=== PATIENT | male | born 1995 | race African-American/Black ===

== ENCOUNTER 2016-09-28 12:23 | Emergency (ER) ==
[2016-09-28 12:31] VITALS: BP 142/65; TEMP 98.6; BMI 18.8
[2016-09-28] MEDS ORDERED: SODIUM CHLORIDE 1,000 ML IV STA (12:40)
[2016-09-28] MEDS ORDERED: ZOFRAN 4 MG/2 ML IVP STA (12:40)
[2016-09-28] MEDS ORDERED: LOMOTIL PO STA (12:41)
[2016-09-28 13:08] LABS: BASOPHILS % (AUTO) 0.2 % (0.0-3.0); EOSINOPHILS % (AUTO) 0.1 % (0.0-7.0); HEMATOCRIT 40.5 % (42.0-52.0); HEMOGLOBIN 14.1 g/dl (14.0-18.0); IMMATURE GRANULOCYTE % (AUTO) 0.3 % (0.0-5.0); LYMPHOCYTES # (AUTO) 0.8 K/uL (0.60-3.4); LYMPHOCYTES % (AUTO) 8.4 (10.0-50.0); MEAN CORPUSCULAR HGB CONC 34.8 (31.8-35.4); MEAN CORPUSCULAR VOLUME 83.3 fl (80.0-94.0); MONOCYTES # (AUTO) 0.5 K/uL (0.4-2.0); NEUTROPHILS # (AUTO) 7.8 K/ul (2.0-6.9); PLATELET COUNT 162 10^3/uL (140-440); RED BLOOD COUNT 4.86 10^6/ul (4.70-6.10); WHITE BLOOD COUNT 9.13 K/ul (4.2-10.2)
[2016-09-28 13:28] LABS: ALBUMIN 4.4 g/dL (3.4-5.0); ALBUMIN/GLOBULIN RATIO 1.52; ANION GAP 17.3; BILIRUBIN,TOTAL 1.12 mg/dL (0.00-1.20); BUN/CREATININE RATIO 9.78; CALCIUM 9.5 mg/dL (8.2-10.2); CREATININE 0.92 mg/dL (0.60-1.10); POTASSIUM 4.3 mmol/L (3.5-5.1); TOTAL PROTEIN 7.3 g/dL (6.4-8.2)
--- NOTE | 2016-09-28 13:35 | CT ---
EXAM: CT Abdomen without contrast. CT Pelvis without contrast. HISTORY: Right-sided abdominal pain, diarrhea, vomiting. COMPARISON: 08/24/2012. TECHNIQUE: Multiple axial images of the abdomen and pelvis were obtained without intravenous contra st. Images were reformatted in the coronal plane. FINDINGS: Please note that evaluation of the abdominal and pelvic structures is limited due to lack of intravenous contrast as well as paucity of intra-abdominal fat. Lung bases are clear. No acute osseous abnormality identified. Liver, gallbladder, pancreas, spleen, adrenal glands, and kidneys demonstrate grossly normal contour . No calcified renal stones or hydronephrosis identified. The bowel is normal in course and caliber without evidence for obstruction or inflammatory process. Clips along the cecum suggest prior appendectomy. No free air identified. No intra-abdominal flui d collections noted. Urinary bladder is unremarkable IMPRESSION: No acute abnormality of the abdomen or pelvis.
--- NOTE | 2016-09-28 14:13 | ED.PDOC ---
General ED Provider: Dr. OSCAR LUNA Chief Complaint: Nausea/Vomiting Stated Complaint: n, v,d Time Seen by Physician: 12:28 Mode of Arrival: Walk-In Information Source: Patient Exam Limitations: No limitations Primary Care Provider: SAFIA OSEI Nursing and Triage Documentation Reviewed and Agree: Yes GI Complaint Exam - Vomiting/Diarrhea Complaint/Exam Symptoms Are: Still present Episodes of Diarrhea Over Last 24 Hours: 0 Initial Severity: Mild Current Severity: Mild Aggravating: Reports: None Alleviating: Reports: None Associated Signs and Symptoms: Denies: Dizziness, Light-headedness, Melena, Hematemesis, Fever, Abdominal pain, Cramping Non-GI Risk Factors: Reports: None Surgical Obstruction Risk Factors: Reports: None Related Surgical History: Reports: None Abdominal Findings: Present: None Review of Systems - Review Of Systems Constitutional: Reports: No symptoms Eyes: Reports: No symptoms Ears, Nose, Mouth, Throat: Reports: No symptoms Respiratory: Reports: No symptoms Cardiac: Reports: No symptoms GI: Reports: Abdominal pain, Nausea, Vomiting : Reports: No symptoms Musculoskeletal: Reports: No symptoms Skin: Reports: No symptoms Neurological: Reports: No symptoms Endocrine: Reports: No symptoms Hematologic/Lymphatic: Reports: No symptoms All Other Systems: Reviewed and Negative Past Medical History - Past Medical History Previously Healthy: Yes Endocrine: Reports: None Cardiovascular: Reports: None Respiratory: Reports: None Hematological: Reports: None Gastrointestinal: Reports: None Genitourinary: Reports: None Neuro/Psych: Reports: None Musculoskeletal: Reports: None Cancer: Reports: None - Surgical History General Surgical History: Reports: Appendectomy - Family History Family History: Reports: Unknown - Social History Smoking Status: Current some day smoker Hx Substance Use: No Alcohol Screening: Occasionally - Immunizations Tetanus Shot up to Date: Yes Physical Exam - Physical Exam Appearance: Well-appearing, No pain distress, Well-nourished Eyes: ZULMA, EOMI, Conjunctiva clear ENT: Ears normal, Nose normal, Oropharynx normal Respiratory: Airway patent, Breath sounds clear, Breath sounds equal, Respirations nonlabored Cardiovascular: RRR, Pulses normal, No rub, No murmur GI/: Soft, Nontender, No masses, Bowel sounds normal, No Organomegaly Musculoskeletal: Normal strength, ROM intact, No edema, No calf tenderness Skin: Warm, Dry, Normal color Neurological: Sensation intact, Motor intact, Reflexes intact, Cranial nerves intact, Alert, Oriented Psychiatric: Affect appropriate, Mood appropriate Interpretation - Radiology Interpretation Radiology Interpretation By: Radiologist Radiology Results: No acute changes Critical Care Note - Critical Care Note Total Time (mins): 0 Course - Course Hematology/Chemistry: 09/28/16 13:00 09/28/16 13:00 Orders, Labs, Meds: Lab Review 09/28/16 13:00 WBC 9.13 RBC 4.86 Hgb 14.1 Hct 40.5 L MCV 83.3 MCH 29.0 MCHC 34.8 RDW Coeff of Ranulfo 12.1 Plt Count 162 Immature Gran % (Auto) 0.3 Neut % (Auto) 86.0 Lymph % (Auto) 8.4 L [place] % (Auto) 5.0 Eos % (Auto) 0.1 Baso % (Auto) 0.2 Immature Gran # (Auto) 0.0 Neut # 7.8 H Lymph # 0.8 [place] # 0.5 Eos # 0.0 Baso # 0.0 Sodium 140 Potassium 4.3 Chloride 100 Carbon Dioxide 27 Anion Gap 17.3 BUN 9 Creatinine 0.92 Estimated GFR (MDRD) 125.00 BUN/Creatinine Ratio 9.78 Glucose 150 H Calcium 9.5 Total Bilirubin 1.12 AST 31 ALT 22 Alkaline Phosphatase 59 Total Protein 7.3 Albumin 4.4 Globulin 2.9 Albumin/Globulin Ratio 1.52 Amylase 54 Lipase 6 L Orders Category Date Time Status ED IV/MEDIPORT/POWERPORT .ONCE EMERGENCY 09/28/16 12:39 Active AMYLASE Stat LAB 09/28/16 13:00 Completed CBC W/ AUTO DIFF Stat LAB 09/28/16 13:00 Completed COMPREHENSIVE METABOLIC PANEL Stat LAB 09/28/16 13:00 Completed LIPASE Stat LAB 09/28/16 13:00 Completed URINALYSIS C & S IF INDICATED Stat LAB 09/28/16 13:55 Received 0.9 % Sodium Chloride [Saline Flush] MEDS 09/28/16 12:40 Active 1 syr IVF PRN PRN Diphenoxylate HCl/Atropine [Lomotil] MEDS 09/28/16 12:41 Discontinued 2 tab PO ONCE STA Ondansetron HCl/Pf [Zofran 4 mg/2 ml] MEDS 09/28/16 12:40 Discontinued 4 mg IVP ONCE STA Sodium Chloride 0.9% [Sodium Chloride] 1,000 ml MEDS 09/28/16 12:[address] ABDOMEN/PELVIS WO CONTRAST Stat RADS 09/28/16 12:39 Completed Medications Generic Name Dose Route Start Last Admin Trade Name Freq PRN Reason Stop Dose Admin Sodium Chloride 1 syr 09/28/16 12:40 09/28/16 13:12 Saline Flush IVF 1 syr PRN PRN Administration To flush IV Discontinued Medications Generic Name Dose Route Start Last Admin Trade Name Freq PRN Reason Stop Dose Admin Diphenoxylate HCl/Atropine 2 tab 09/28/16 12:41 09/28/16 14:09 Lomotil PO 09/28/16 12:42 2 tab ONCE STA Administration Sodium Chloride 1,000 mls @ 1,000 mls/hr 09/28/16 12:40 09/28/16 12:53 Sodium Chloride IV 09/28/16 13:39 1,000 mls/hr BOLUS STA Administration Ondansetron HCl 4 mg 09/28/16 12:40 09/28/16 12:52 Zofran 4 Mg/2 Ml IVP 09/28/16 12:41 4 mg ONCE STA Administration Vital Signs: Temp Pulse Resp BP Pulse Ox 09/28/16 12:25 98.6 F 67 20 142/65 H 99 Departure - Departure Time of Disposition: 14:12 Disposition: HOME SELF-CARE Discharge Problem: Nausea, Vomiting, Gastroenteritis Instructions: Gastroenteritis (ED) Condition: Good Pt referred to PMD for follow-up: Yes Additional Instructions: Please call your Family Physician as soon as possible to schedule a follow-up appointment. Allergies/Adverse Reactions: Allergies No Known Allergies Allergy (Verified 09/28/16 12:37) Home Medications: Ambulatory Orders 1 [No Reported Medications] 0 mg PO DAILY 08/24/12 Disposition Discussed With: Patient
[2016-09-28 14:15] LABS: BILIRUBIN,URINE Negative (NEGATIVE); KETONES,URINE 4+ (NEGATIVE); LEUKOCYTE ESTERASE ,URINE Negative (NEGATIVE); NITRITE,URINE Negative (NEGATIVE); PH,URINE 8.5 (5-9); PROTEIN,URINE Negative (NEGATIVE); URINE, BLOOD Negative (NEGATIVE)
[2016-09-28 14:16] LABS: ADD URINE MICROSCOPIC NO
== END 2016-09-28 14:23 | disposition home or self-care (01) ==
LOC: ED 12:23
DX: K52.9 Noninfective gastroenteritis and colitis, unspecified (principal); F17.210 Nicotine dependence, cigarettes, uncomplicated
CPT/HCPCS: 36415; 80053; 81001; 82150; 83690; 85025; 96361; 96374; 99283

== ENCOUNTER 2017-04-18 15:29 | Emergency (ER) ==
[2017-04-18 15:47] VITALS: TEMP 99.4; BMI 20.2
--- NOTE | 2017-04-18 18:43 | ED.PDOC ---
General ED Provider: Dr. EMILIANO AVALOS Chief Complaint: Nausea/Vomiting Stated Complaint: Stated ate taco yoder last evening, slept well last night. Went to work this am and had Onset this morning after going to work / Multiple episodes of emesis today(8-9) and one episode of diarrhea. Has been sleeping and feels better now. Denies sore throat Time Seen by Physician: 18:20 Mode of Arrival: Walk-In Information Source: Patient Exam Limitations: No limitations Primary Care Provider: SAFIA OSEI Nursing and Triage Documentation Reviewed and Agree: Yes Reviewed sepsis parameters & appropriate labs ordered?: Yes System Inflammatory Response Syndrome: Not Applicable Sepsis Protocol: For patient's 13 years and over: Temp is 96.8 and below OR 101 and greater Pulse >90 BPM Resp >20/minute Acutely Altered Mental Status Are patient's symptoms suggestive of a new infection, such as: -Pneumonia -Skin, Soft Tissue -Endocarditis -UTI -Bone, Joint Infection -Implantable Device -Acute Abdominal Infection -Wound Infection -Meningitis -Blood Stream Catheter Infection -Unknown System Inflammatory Response Syndrome: Not Applicable Review of Systems - Review Of Systems Constitutional: Reports: Weakness, Loss of appetite Eyes: Reports: No symptoms Ears, Nose, Mouth, Throat: Reports: No symptoms Respiratory: Reports: No symptoms Cardiac: Reports: No symptoms GI: Reports: No symptoms, Diarrhea, Vomiting. Denies: Abdomen distended, Abdominal pain : Reports: No symptoms Musculoskeletal: Reports: No symptoms Skin: Reports: No symptoms Neurological: Reports: No symptoms All Other Systems: Reviewed and Negative Past Medical History - Past Medical History Previously Healthy: Yes Endocrine: Reports: None Cardiovascular: Reports: None Respiratory: Reports: None Hematological: Reports: None Gastrointestinal: Reports: None Genitourinary: Reports: None Neuro/Psych: Reports: None Musculoskeletal: Reports: None Cancer: Reports: None - Surgical History General Surgical History: Reports: Appendectomy - Family History Family History: Reports: Unknown - Social History Smoking Status: Current some day smoker Hx Substance Use: No Alcohol Screening: Occasionally Physical Exam - Physical Exam Appearance: Well-appearing Ill-appearing: None Pain Distress: None Eyes: ZULMA, EOMI, Conjunctiva clear ENT: Ears normal, Nose normal, Oropharynx normal Neck: Supple Respiratory: Airway patent, Breath sounds clear, Breath sounds equal Cardiovascular: RRR, Pulses normal, No rub, No murmur GI/: Soft, Nontender, No masses, Bowel sounds normal Musculoskeletal: Normal strength, ROM intact, No edema Skin: Warm, Dry, Normal color Neurological: Sensation intact, Motor intact, Alert, Oriented Psychiatric: Affect appropriate Critical Care Note - Critical Care Note Total Time (mins): 0 Course - Course Hematology/Chemistry: 04/18/17 18:51 04/18/17 18:51 Orders, Labs, Meds: Lab Review 04/18/17 04/18/17 04/18/17 17:18 18:45 18:51 WBC 10.49 H RBC 5.20 Hgb 15.3 Hct 43.8 MCV 84.2 MCH 29.4 MCHC 34.9 RDW Coeff of Ranulfo 11.9 Plt Count 257 Immature Gran % (Auto) 0.3 Neut % (Auto) 89.9 Lymph % (Auto) 6.[address] % (Auto) 3.4 Eos % (Auto) 0.0 Baso % (Auto) 0.2 Immature Gran # (Auto) 0.0 Neut # 9.4 H Lymph # 0.7 [place] # 0.4 Eos # 0.0 Baso # 0.0 Sodium Potassium Chloride Carbon Dioxide Anion Gap BUN Creatinine Estimated GFR (MDRD) BUN/Creatinine Ratio Glucose Calcium Total Bilirubin AST ALT Alkaline Phosphatase Total Protein Albumin Globulin Albumin/Globulin Ratio Urine Color Yellow Urine Clarity Clear Urine pH 8.5 Ur Specific [place] 1.015 Urine Protein Negative Urine Glucose (UA) Trace Urine Ketones 1+ Urine Blood Negative Urine Nitrite Negative Urine Bilirubin Negative Urine Urobilinogen 0.2 Ur Leukocyte Esterase Negative Influenza A (Rapid) Negative by naat Influenza B (Rapid) Negative by naat 04/18/17 18:51 WBC RBC Hgb Hct MCV MCH MCHC RDW Coeff of Ranulfo Plt Count Immature Gran % (Auto) Neut % (Auto) Lymph % (Auto) [place] % (Auto) Eos % (Auto) Baso % (Auto) Immature Gran # (Auto) Neut # Lymph # [place] # Eos # Baso # Sodium 139 Potassium 4.5 Chloride 101 Carbon Dioxide 27 Anion Gap 15.5 BUN 7 Creatinine 0.98 Estimated GFR (MDRD) 115.00 BUN/Creatinine Ratio 7.14 Glucose 126 H Calcium 10.6 H Total Bilirubin 1.2 AST 18 ALT 17 Alkaline Phosphatase 62 Total Protein 8.6 H Albumin 5.0 Globulin 3.6 Albumin/Globulin Ratio 1.39 Urine Color Urine Clarity Urine pH Ur Specific [place] Urine Protein Urine Glucose (UA) Urine Ketones Urine Blood Urine Nitrite Urine Bilirubin Urine Urobilinogen Ur Leukocyte Esterase Influenza A (Rapid) Influenza B (Rapid) Orders Category Date Time Status CBC W/ AUTO DIFF Stat LAB 04/18/17 18:51 Completed CMP [COMPREHENSIVE METABOLIC PANEL] Stat LAB 04/18/17 18:51 Completed FLU A & B MOLECULAR [FLU A/B MOLECULAR] Stat LAB 04/18/17 18:45 Completed UA [URINALYSIS C & S IF INDICATED] Stat LAB 04/18/17 17:18 Completed Vital Signs: Temp Pulse Resp BP Pulse Ox 04/18/17 15:31 99.4 F 89 16 143/100 H 98 Departure - Departure Time of Disposition: 19:45 Disposition: HOME SELF-CARE Discharge Problem: Gastroenteritis Instructions: Gastroenteritis (ED) Condition: Good Pt referred to PMD for follow-up: Yes (PCP) IPMP verified?: No Additional Instructions: Advance diet as tolerated Maintain good oral hydration Have Blood Pressure re evaluated at time of follow up Allergies/Adverse Reactions: Allergies No Known Allergies Allergy (Verified 04/18/17 15:36) Home Medications: Ambulatory Orders 1 [No Reported Medications] 0 mg PO DAILY 08/24/12 Disposition Discussed With: Patient
[2017-04-18 20:03] VITALS: BP 115/81
== END 2017-04-18 20:06 | disposition home or self-care (01) ==
LOC: ED 15:29
DX: K52.9 Noninfective gastroenteritis and colitis, unspecified (principal); F17.210 Nicotine dependence, cigarettes, uncomplicated
CPT/HCPCS: 36415; 80053; 81001; 85025; 87502; 99283

== ENCOUNTER 2017-07-08 05:26 | Emergency (ER) ==
[2017-07-08 05:34] VITALS: BP 152/88; TEMP 97.6; BMI 19.5
[2017-07-08] MEDS ORDERED: ZOFRAN 4 MG/2 ML IVP STA (05:59)
[2017-07-08] MEDS ORDERED: DEMEROL 50 MG/ML VIAL IVP STA (05:59)
--- NOTE | 2017-07-08 06:29 | CT ---
EXAM: CT abdomen and pelvis without intravenous contrast 07/08/2017. Sagittal and coronal reformatt ed images obtained HISTORY: Abdominal pain. Nausea, vomiting and diarrhea. COMPARISON: 09/28/2016 FINDINGS: The liver, gallbladder, adrenal glands, kidneys, spleen and pancreas show no acute process . No bowel obstruction. Postoperative changes within the right lower quadrant. Appendix not identi fied. Unremarkable urinary bladder. No free air or free fluid. IMPRESSION: No acute inflammatory process identified within the limitation of a noncontrast enhanced examination.
--- NOTE | 2017-07-08 06:31 | ED.PDOC ---
General ED Provider: Dr. PRASHANTH CROSS Chief Complaint: Abdominal Pain Stated Complaint: Came for lower abddominal pain, nausea and vomiting,. He ate re heated Wings yesterday night, thinks it might have started it. Time Seen by Physician: 06:29 Mode of Arrival: Walk-In Information Source: Patient Primary Care Provider: SAFIA OSEI Nursing and Triage Documentation Reviewed and Agree: Yes Reviewed sepsis parameters & appropriate labs ordered?: No System Inflammatory Response Syndrome: Not Applicable Sepsis Protocol: For patient's 13 years and over: Temp is 96.8 and below OR 101 and greater Pulse >90 BPM Resp >20/minute Acutely Altered Mental Status Are patient's symptoms suggestive of a new infection, such as: -Pneumonia -Skin, Soft Tissue -Endocarditis -UTI -Bone, Joint Infection -Implantable Device -Acute Abdominal Infection -Wound Infection -Meningitis -Blood Stream Catheter Infection -Unknown GI Complaint Exam - Abdominal Pain Complaint/Exam Onset: Gradual Symptoms Are: Still present Timing: Constant Initial Severity: Severe Current Severity: Severe Location of Pain: Suprapubic Character: Reports: Dull, Aching, Throbbing Aggravating: Reports: Movement Alleviating: Reports: None Associated Signs and Symptoms: Reports: Decreased urine output, Nausea, Vomiting , Diarrhea, Decreased activity AAA Risk Factors: Reports: None Cardiac Risk Factors: Reports: None Testicular Torsion Risk Factors: Reports: None Surgical Obstruction Risk Factors: Reports: None Related Surgical History: Reports: None Abdominal Findings: Absent: Pulsatile mass, Abdominal distention, Unequal femoral pulses Differential Diagnoses: Gastroenteritis Review of Systems - Review Of Systems Constitutional: Reports: No symptoms Eyes: Reports: No symptoms Ears, Nose, Mouth, Throat: Reports: No symptoms Respiratory: Reports: No symptoms Cardiac: Reports: No symptoms GI: Reports: Abdominal pain, Diarrhea, Nausea, Vomiting : Reports: No symptoms Musculoskeletal: Reports: No symptoms Skin: Reports: No symptoms Neurological: Reports: No symptoms Endocrine: Reports: No symptoms Hematologic/Lymphatic: Reports: No symptoms All Other Systems: Reviewed and Negative Past Medical History - Past Medical History Previously Healthy: Yes Endocrine: Reports: None Cardiovascular: Reports: None Respiratory: Reports: None Hematological: Reports: None Gastrointestinal: Reports: None Genitourinary: Reports: None Neuro/Psych: Reports: None Musculoskeletal: Reports: None Cancer: Reports: None - Surgical History General Surgical History: Reports: Appendectomy - Family History Family History: Reports: Unknown - Social History Smoking Status: Current some day smoker Hx Substance Use: No Alcohol Screening: None - Immunizations Tetanus Shot up to Date: Yes Physical Exam - Physical Exam Appearance: Ill-appearing, Thin Eyes: ZULMA, EOMI, Conjunctiva clear ENT: Ears normal, Nose normal, Oropharynx normal Respiratory: Airway patent, Breath sounds clear, Breath sounds equal, Respirations nonlabored Cardiovascular: RRR, Pulses normal, No rub, No murmur GI/: Soft, Tender Musculoskeletal: Normal strength, ROM intact, No edema, No calf tenderness Skin: Warm, Dry, Normal color Neurological: Sensation intact, Motor intact, Reflexes intact, Cranial nerves intact, Alert, Oriented Psychiatric: Affect appropriate, Mood appropriate Critical Care Note - Critical Care Note Total Time (mins): 30 Course - Course Hematology/Chemistry: 07/08/17 05:50 Orders, Labs, Meds: Lab Review 07/08/17 05:50 WBC 14.45 H RBC 5.15 Hgb 14.8 Hct 44.0 MCV 85.4 MCH 28.7 MCHC 33.6 RDW Coeff of Ranulfo 12.0 Plt Count 247 Immature Gran % (Auto) 0.8 Neut % (Auto) 77.1 Lymph % (Auto) 10.6 [place] % (Auto) 10.0 Eos % (Auto) 1.2 Baso % (Auto) 0.3 Immature Gran # (Auto) 0.1 Neut # (Auto) 11.1 H Lymph # (Auto) 1.5 [place] # (Auto) 1.5 Eos # (Auto) 0.2 Baso # (Auto) 0.1 Orders Category Date Time Status ED IV/MEDIPORT/POWERPORT .ONCE EMERGENCY 07/08/17 05:59 Active AMYLASE Stat LAB 07/08/17 05:50 Received CBC W/ AUTO DIFF Stat LAB 07/08/17 05:50 Completed COMPREHENSIVE METABOLIC PANEL Stat LAB 07/08/17 05:50 Received LIPASE Stat LAB 07/08/17 05:50 Received 0.9 % Sodium Chloride [Saline Flush] MEDS 07/08/17 05:59 Ordered 1 syr IVF PRN PRN Meperidine HCl/Pf [Demerol 50 mg/ml Vial] MEDS 07/08/17 05:59 Discontinued 25 mg IVP ONCE STA Ondansetron HCl/Pf [Zofran 4 mg/2 ml] MEDS 07/08/17 05:59 Discontinued 4 [address]P ONCE STA CT ABDOMEN/PELVIS WO CONTRAST Stat RADS 07/08/17 05:59 Taken Medications Generic Name Dose Route Start Last Admin Trade Name Freq PRN Reason Stop Dose Admin Sodium Chloride 1 syr 07/08/17 05:59 Saline Flush IVF PRN PRN To flush IV Discontinued Medications Generic Name Dose Route Start Last Admin Trade Name Freq PRN Reason Stop Dose Admin Meperidine HCl 25 mg 07/08/17 05:59 07/08/17 06:13 Demerol 50 Mg/Ml Vial IVP 07/08/17 06:00 25 mg ONCE STA Administration Ondansetron HCl 4 mg 07/08/17 05:59 07/08/17 06:11 Zofran 4 Mg/2 Ml IVP 07/08/17 06:00 4 mg ONCE STA Administration Vital Signs: Temp Pulse Resp BP Pulse Ox 07/08/17 05:27 97.6 F 68 16 152/88 H 97 Departure - Departure Time of Disposition: 06:35 Disposition: HOME SELF-CARE Discharge Problem: Gastroenteritis Instructions: Gastroenteritis (ED) Condition: Stable Pt referred to PMD for follow-up: Yes IPMP verified?: No Additional Instructions: Increase Hydration Soft diet for 2-3 days If not better needs to have f/u Prescriptions: Ondansetron [Zofran Odt] 4 mg PO Q8H #20 tab.rapdis Allergies/Adverse Reactions: Allergies No Known Allergies Allergy (Verified 07/08/17 05:54) Home Medications: Ambulatory Orders 1 [No Reported Medications] 0 mg PO DAILY 08/24/12 Ondansetron [Zofran Odt] 4 mg PO Q8H #20 tab.rapdis 07/08/17 Disposition Discussed With: Patient
[2017-07-08] MEDS ORDERED: PROTONIX IV IVP STA (06:32)
[2017-07-08] MEDS ORDERED: SODIUM CHLORIDE 500 ML IV STA (06:35)
[2017-07-08] MEDS ORDERED: SODIUM CHLORIDE 1,000 ML IV STA (08:18)
[2017-07-08] MEDS ORDERED: PHENERGAN 25 MG/ML VIAL 25 MG in SODIUM CHLORIDE 50 ML IV STA (08:18)
[2017-07-08] MEDS ORDERED: PHENERGAN 25 MG/ML VIAL ONE (08:22)
== END 2017-07-08 09:53 | disposition home or self-care (01) ==
LOC: ED 05:26
DX: K52.9 Noninfective gastroenteritis and colitis, unspecified (principal); F17.210 Nicotine dependence, cigarettes, uncomplicated
CPT/HCPCS: 36415; 80053; 82150; 83690; 85025; 96361; 96365; 96375; 99283

== ENCOUNTER 2017-08-22 13:07 | Emergency (ER) ==
[2017-08-22 13:12] VITALS: BP 157/93; TEMP 96.4; BMI 18.8
[2017-08-22] MEDS ORDERED: SODIUM CHLORIDE 1,000 ML IV STA ×4 (13:31→17:20)
[2017-08-22] MEDS ORDERED: ZOFRAN 4 MG/2 ML IVP STA (13:31)
[2017-08-22] MEDS ORDERED: PEPCID IVP STA (13:33)
--- NOTE | 2017-08-22 15:16 | ED.PDOC ---
General ED Provider: Dr. EMILIANO AVALOS Chief Complaint: Nausea/Vomiting Stated Complaint: Severe nausea and vomiting. Recurrent symptoms that seem to occur monthly. Denies know precipitating factors. No prior GI work up Time Seen by Physician: 13:20 Mode of Arrival: Walk-In Information Source: Patient Exam Limitations: No limitations Primary Care Provider: SAFIA OSEI Nursing and Triage Documentation Reviewed and Agree: Yes Does patient meet sepsis criteria?: No System Inflammatory Response Syndrome: Not Applicable Sepsis Protocol: For patient's 13 years and over: Temp is 96.8 and below OR 101 and greater Pulse >90 BPM Resp >20/minute Acutely Altered Mental Status Are patient's symptoms suggestive of a new infection, such as: -Pneumonia -Skin, Soft Tissue -Endocarditis -UTI -Bone, Joint Infection -Implantable Device -Acute Abdominal Infection -Wound Infection -Meningitis -Blood Stream Catheter Infection -Unknown GI Complaint Exam - Abdominal Pain Complaint/Exam Onset: Sudden Symptoms Are: Still present Timing: Constant Initial Severity: Severe Current Severity: Moderate Location of Pain: LUQ, LLQ, Epigastric Radiates To: Reports: Back, LLQ Character: Reports: Sharp, Burning, Cramping, Colicky Aggravating: Reports: None Alleviating: Reports: None Associated Signs and Symptoms: Reports: Decreased appetite, Vomiting Related History: Reports: Similar episode AAA Risk Factors: Reports: None Cardiac Risk Factors: Reports: None Testicular Torsion Risk Factors: Reports: None Surgical Obstruction Risk Factors: Reports: None Related Surgical History: Reports: None Abdominal Findings: Present: Abdominal distention Differential Diagnoses: Diverticulitis, Gastroenteritis, Irritable Bowel Syndrome - Vomiting/Diarrhea Complaint/Exam Symptoms Are: Still present Episodes of Vomiting over last 24 Hours: 6 Initial Severity: Severe Current Severity: Moderate Character of Vomiting: Reports: Bilious, Retching Alleviating: Reports: Lying still, Medications Associated Signs and Symptoms: Reports: Dizziness, Abdominal pain, Cramping Related History: Reports: Similar episode Surgical Obstruction Risk Factors: Reports: None Related Surgical History: Reports: None Abdominal Findings: Present: Abdominal distention Kussmaul Respirations Present: No Differential Diagnoses: Dehydration, Gastritis, Viral Gastroenteritis, Bacterial Gastroenteritis Review of Systems - Review Of Systems Constitutional: Reports: No symptoms, Chills Eyes: Reports: No symptoms Ears, Nose, Mouth, Throat: Reports: No symptoms Respiratory: Reports: No symptoms Cardiac: Reports: No symptoms GI: Reports: No symptoms, Abdomen distended, Nausea, Poor appetite, Vomiting : Reports: No symptoms Musculoskeletal: Reports: No symptoms Skin: Reports: No symptoms Neurological: Reports: No symptoms Endocrine: Reports: No symptoms Hematologic/Lymphatic: Reports: No symptoms All Other Systems: Reviewed and Negative Past Medical History - Past Medical History Previously Healthy: Yes Endocrine: Reports: None, Other (Hyperglycemia) Cardiovascular: Reports: None Respiratory: Reports: None Hematological: Reports: None, Sickle Cell (Trait), Other (Sickle Cell Trait) Gastrointestinal: Reports: None, Other (Gastroenteritis) Genitourinary: Reports: None Neuro/Psych: Reports: None Musculoskeletal: Reports: None Cancer: Reports: None - Surgical History General Surgical History: Reports: Appendectomy - Family History Family History: Reports: Unknown - Social History Smoking Status: Current some day smoker, Light tobacco smoker Hx Substance Use: No Alcohol Screening: None Physical Exam - Physical Exam Appearance: Ill-appearing, Well-nourished, Thin Ill-appearing: Moderate Pain Distress: Moderate Eyes: ZULMA, EOMI, Conjunctiva clear ENT: Ears normal, Nose normal, Oropharynx normal Respiratory: Airway patent, Breath sounds clear, Breath sounds equal, Respirations nonlabored Cardiovascular: RRR, Pulses normal, No rub, No murmur GI/: Soft, No masses, No Organomegaly, Tender, Bowel sounds hypoactive Musculoskeletal: Normal strength, ROM intact, No edema, No calf tenderness Skin: Warm, Dry, Normal color Neurological: Sensation intact, Motor intact, Reflexes intact, Cranial nerves intact, Alert, Oriented Psychiatric: Affect appropriate, Mood appropriate Critical Care Note - Critical Care Note Total Time (mins): 60 Course - Course Hematology/Chemistry: 08/22/17 13:45 08/22/17 13:45 Orders, Labs, Meds: Lab Review 08/22/17 08/22/17 13:45 13:45 WBC 15.92 H RBC 5.30 Hgb 15.0 Hct 44.5 MCV 84.0 MCH 28.3 MCHC 33.7 RDW Coeff of Ranulfo 13.0 Plt Count 226 Immature Gran % (Auto) 0.4 Neut % (Auto) 85.5 Lymph % (Auto) 8.7 L [place] % (Auto) 4.8 Eos % (Auto) 0.3 Baso % (Auto) 0.3 Immature Gran # (Auto) 0.1 Neut # (Auto) 13.6 H Lymph # (Auto) 1.4 [place] # (Auto) 0.8 Eos # (Auto) 0.1 Baso # (Auto) 0.1 Sodium 136 Potassium 4.7 Chloride 103 Carbon Dioxide 26 Anion Gap 11.7 BUN 9 Creatinine 0.97 Estimated GFR (MDRD) 116.00 BUN/Creatinine Ratio 9.27 Glucose 142 H Calcium 9.5 Total Bilirubin 1.0 AST 24 ALT 15 Alkaline Phosphatase 63 Total Protein 8.4 H Albumin 4.5 Globulin 3.9 Albumin/Globulin Ratio 1.15 Lipase 7 L Orders Category Date Time Status NPO REMINDER: IMAGING ONCE CARE 08/22/17 13:36 Completed IV [ED IV/MEDIPORT/POWERPORT] .ONCE EMERGENCY 08/22/17 13:30 Active CBC W/ AUTO DIFF Stat LAB 08/22/17 13:45 Completed CMP [COMPREHENSIVE METABOLIC PANEL] Stat LAB 08/22/17 13:45 Completed LIPASE Stat LAB 08/22/17 13:45 Completed UA [URINALYSIS C & S IF INDICATED] Stat LAB 08/22/17 13:36 Uncollected URINE DRUG SCREEN (RAPID FOR ED) [DRUG SCREEN, URINE, LAB 08/22/17 13:36 Uncollected RAPID] Stat 0.9 % Sodium Chloride [Saline Flush] MEDS 08/22/17 13:30 Active 1 syr IVF PRN PRN Famotidine Inj [Pepcid] MEDS 08/22/17 13:33 Discontinued 20 mg IVP ONCE STA Ondansetron HCl/Pf [Zofran 4 mg/2 ml] MEDS 08/22/17 13:31 Discontinued 4 mg IVP ONCE STA Sodium Chloride 0.9% [Sodium Chloride] 1,000 ml MEDS 08/22/17 13:49 Discontinued IV BOLUS Medications Generic Name Dose Route Start Last Admin Trade Name Freq PRN Reason Stop Dose Admin Sodium Chloride 1 syr 08/22/17 13:30 08/22/17 13:50 Saline Flush IVF 1 syr PRN PRN Administration To flush IV Discontinued Medications Generic Name Dose Route Start Last Admin Trade Name Freq PRN Reason Stop Dose Admin Famotidine 20 mg 08/22/17 13:33 08/22/17 13:46 Pepcid IVP 08/22/17 13:34 20 mg ONCE STA Administration Sodium Chloride 1,000 mls @ 1,000 mls/hr 08/22/17 13:49 08/22/17 13:50 Sodium Chloride IV 08/22/17 14:48 1,000 mls/hr BOLUS STA Administration Ondansetron HCl 4 mg 08/22/17 13:31 08/22/17 13:46 Zofran 4 Mg/2 Ml IVP 08/22/17 13:32 4 mg ONCE STA Administration Vital Signs: Temp Pulse Resp BP Pulse Ox 08/22/17 13:07 96.4 F L 57 L 20 157/93 H 99 Departure - Departure Time of Disposition: 18:50 Disposition: HOME SELF-CARE Discharge Problem: Gastritis, Vomiting, Dehydration, Sickle-cell trait Condition: Good Pt referred to PMD for follow-up: Yes IPMP verified?: No Additional Instructions: Remain well hydrated Avoid fast food items Follow up pcp 1 week Allergies/Adverse Reactions: Allergies No Known Allergies Allergy (Verified 08/22/17 13:14) Home Medications: Ambulatory Orders 1 [No Reported Medications] 0 mg PO DAILY 08/24/12 Disposition Discussed With: Patient, Family Additional Comments Additional Comments: After receiving 1 liter of IV NS, patient feeling slighlty better but still having upper abdominal Crramping pain and Nausea. HX Sickle Cell Trait. Requesting additional IV fluids. 1830 hrs: 2nd liter of fluid infused. Patient much improved requesting discharge to home
[2017-08-22] MEDS ORDERED: PHENERGAN 25 MG/ML VIAL IM STA (15:22)
--- NOTE | 2017-08-22 16:25 | CT ---
EXAM: CT abdomen pelvis with and without contra HISTORY: Abdominal pain with nausea/vomiting COMPARISON: 07/08/2017 TECHNIQUE: CT abdomen pelvis performed with and without intravenous contrast. Coronal and sagittal reformatted images obtained. FINDINGS: Lung bases clear. No acute abnormalities of the bones. Heart normal in size. Small foca l fatty infiltration near the falciform ligament. Liver otherwise unremarkable. Gallbladder unremar kable. Pancreas unremarkable. Spleen unremarkable. Adrenals unremarkable. Sub centimeter hypodens ities right kidney, too small to characterize. No hydronephrosis or nephrolithiasis. Aorta normal i n caliber. Bladder unremarkable. Prostate normal in size. No lymphadenopathy or ascites identified . Stomach appears normal. No dilated loops small bowel. Clips along the cecum suggest prior append ectomy. Colon decompressed and poorly evaluated. No inflammatory stranding identified in the abdomen or pelvis. IMPRESSION: No acute abnormality identified in the abdomen pelvis.
[2017-08-22] MEDS ORDERED: PROTONIX IV IVP STA (16:33)
== END 2017-08-22 19:10 | disposition home or self-care (01) ==
LOC: ED 13:07
DX: K29.70 Gastritis, unspecified, without bleeding (principal); R11.10 Vomiting, unspecified; E86.0 Dehydration; D57.3 Sickle-cell trait
CPT/HCPCS: 36415; 80053; 80306; 81001; 83036; 83690; 85025; 96361; 96365; 96372; 96374; 96375; 99283

== ENCOUNTER 2017-10-27 11:41 | Emergency (ER) ==
[2017-10-27 11:51] VITALS: BP 127/82; TEMP 98.6; BMI 18.6
--- NOTE | 2017-10-27 12:19 | DI ---
Exam: Right hand three-view History: Injury and pain Findings / impression: The specific site of injury has not been designated. No bony or articular ab normality of the right hand. Negative exam.
--- NOTE | 2017-10-27 12:29 | ED.PDOC ---
General ED Provider: Dr. OSCAR LUNA Chief Complaint: Hand Pain/Injury Stated Complaint: HAND PAIN RIGHT SIDED Time Seen by Physician: 11:43 Mode of Arrival: Walk-In Information Source: Patient Exam Limitations: No limitations Primary Care Provider: SAFIA OSEI Nursing and Triage Documentation Reviewed and Agree: Yes Does patient meet sepsis criteria?: No System Inflammatory Response Syndrome: Not Applicable Sepsis Protocol: For patient's 13 years and over: Temp is 96.8 and below OR 101 and greater Pulse >90 BPM Resp >20/minute Acutely Altered Mental Status Are patient's symptoms suggestive of a new infection, such as: -Pneumonia -Skin, Soft Tissue -Endocarditis -UTI -Bone, Joint Infection -Implantable Device -Acute Abdominal Infection -Wound Infection -Meningitis -Blood Stream Catheter Infection -Unknown Musculoskeletal Complaint Exam - Hand/Wrist Complaint/Exam Location of Pain: Reports: Right, Hand. Denies: Wrist Mechanism of Injury: Reports: Trauma (BL[employer] LAST WEEK) Onset/Duration: 7 DAYS Symptoms Are: Still present Onset of Pain: Reports: Immediate Initial Severity: Mild Current Severity: Mild Location: Reports: Discrete Character: Reports: Aching Alleviating: Reports: Rest Aggravating: Reports: Movement Associated Signs and Symptoms: Denies: Swelling, Redness, Bruising, Fever, Weakness, Numbness, Tingling Dominant Hand: Right Related Surgical History: Reports: None Hand/Wrist Findings: Absent: Swelling, Ecchymosis, Abnormal contour, Rotation, Ligamentous instability Differential Diagnoses: Closed Fracture Review of Systems - Review Of Systems Constitutional: Reports: No symptoms Eyes: Reports: No symptoms Ears, Nose, Mouth, Throat: Reports: No symptoms Respiratory: Reports: No symptoms Cardiac: Reports: No symptoms GI: Reports: No symptoms : Reports: No symptoms Musculoskeletal: Reports: Joint pain (HAND RIGHT ) Skin: Reports: No symptoms Neurological: Reports: No symptoms Endocrine: Reports: No symptoms Hematologic/Lymphatic: Reports: No symptoms All Other Systems: Reviewed and Negative Past Medical History - Past Medical History Previously Healthy: Yes Endocrine: Reports: None, Other (Hyperglycemia) Cardiovascular: Reports: None Respiratory: Reports: None Hematological: Reports: None, Sickle Cell (Trait), Other (Sickle Cell Trait) Gastrointestinal: Reports: None, Other (Gastroenteritis) Genitourinary: Reports: None Neuro/Psych: Reports: None Musculoskeletal: Reports: None Cancer: Reports: None - Surgical History General Surgical History: Reports: Appendectomy - Family History Family History: Reports: Unknown - Social History Smoking Status: Current some day smoker, Light tobacco smoker Hx Substance Use: No Alcohol Screening: None - Immunizations Tetanus Shot up to Date: No Physical Exam - Physical Exam Appearance: Well-appearing, No pain distress, Well-nourished Eyes: ZULMA, EOMI, Conjunctiva clear ENT: Ears normal, Nose normal, Oropharynx normal Respiratory: Airway patent, Breath sounds clear, Breath sounds equal, Respirations nonlabored Cardiovascular: RRR, Pulses normal, No rub, No murmur GI/: Soft, Nontender, No masses, Bowel sounds normal, No Organomegaly Musculoskeletal: Normal strength, ROM intact, No edema, No calf tenderness Skin: Warm, Dry, Normal color Neurological: Sensation intact, Motor intact, Reflexes intact, Cranial nerves intact, Alert, Oriented Psychiatric: Affect appropriate, Mood appropriate Interpretation - Radiology Interpretation Radiology Interpretation By: Radiologist Radiology Results: No acute changes Critical Care Note - Critical Care Note Total Time (mins): 0 Course - Course Orders, Labs, Meds: Orders Category Date Time Status HAND, RIGHT 3 VIEWS Stat RADS 10/27/17 11:56 Completed Vital Signs: Temp Pulse Resp BP Pulse Ox 10/27/17 11:42 98.6 F 66 16 127/82 98 Departure - Departure Time of Disposition: 12:29 Disposition: HOME SELF-CARE Discharge Problem: Hand pain Instructions: Arthralgia (ED) Condition: Good Pt referred to PMD for follow-up: Yes IPMP verified?: No Additional Instructions: Please call your Family Physician as soon as possible to schedule a follow-up appointment. Allergies/Adverse Reactions: Allergies No Known Allergies Allergy (Verified 10/27/17 11:50) Home Medications: Ambulatory Orders 1 [No Reported Medications] 0 mg PO DAILY 08/24/12 Disposition Discussed With: Patient
== END 2017-10-27 12:35 | disposition home or self-care (01) ==
LOC: ED 11:41
DX: M79.641 Pain in right hand (principal); W22.8XXA Striking against or struck by other objects, initial encounter; F17.210 Nicotine dependence, cigarettes, uncomplicated
CPT/HCPCS: 99283

== ENCOUNTER 2017-12-01 13:20 | Outpatient (CLI) ==
[2012-08-24 09:18] VITALS: TEMP 97.4
== END 2017-12-01 13:21 | disposition home or self-care (01) ==
LOC: LAB 13:20
PROVIDERS: ATTEND Family Medicine
DX: Z20.2 Contact with and (suspected) exposure to infections with a predominantly sexual mode of transmission (principal)
CPT/HCPCS: 36415; 87389; 87800

== ENCOUNTER 2017-12-09 17:56 | Emergency (ER) ==
[2017-12-09 18:08] VITALS: BP 0/0; TEMP 98.7; BMI 18.8
[2017-12-09] MEDS ORDERED: SODIUM CHLORIDE 1,000 ML IV STA (18:20)
[2017-12-09] MEDS ORDERED: ZOFRAN 4 MG/2 ML IVP STA (18:20)
[2017-12-09] MEDS ORDERED: PROTONIX IV IVP STA (18:20)
[2017-12-09] MEDS ORDERED: BENTYL IM STA (18:23)
--- NOTE | 2017-12-09 18:29 | ED.PDOC ---
General ED Provider: Dr. CHAVO BONNER Chief Complaint: Nausea/Vomiting Stated Complaint: Patient states he had alot to drink last night for his birthday. Today he woke up at 11 AM with nausea, vomiting and Diarrhea. Thinks he has vomited 3O times. Also states he has had lots of Abdominal cramping. Time Seen by Physician: 18:27 Mode of Arrival: Wheelchair Information Source: Patient Exam Limitations: No limitations Primary Care Provider: SAFIA OSEI Nursing and Triage Documentation Reviewed and Agree: Yes Does patient meet sepsis criteria?: No System Inflammatory Response Syndrome: Not Applicable Sepsis Protocol: For patient's 13 years and over: Temp is 96.8 and below OR 101 and greater Pulse >90 BPM Resp >20/minute Acutely Altered Mental Status Are patient's symptoms suggestive of a new infection, such as: -Pneumonia -Skin, Soft Tissue -Endocarditis -UTI -Bone, Joint Infection -Implantable Device -Acute Abdominal Infection -Wound Infection -Meningitis -Blood Stream Catheter Infection -Unknown GI Complaint Exam - Vomiting/Diarrhea Complaint/Exam Onset/Duration: 6 hours ago Symptoms Are: Still present Episodes of Vomiting over last 24 Hours: 30 Episodes of Diarrhea Over Last 24 Hours: 10 Initial Severity: Severe Current Severity: Severe Character of Vomiting: Reports: Non-bilious Character of Diarrhea: Reports: Watery Aggravating: Reports: Food, Liquids Alleviating: Reports: None Associated Signs and Symptoms: Reports: Cramping Related History: Denies: Similar episode, Recent antibiotics Non-GI Risk Factors: Reports: None Surgical Obstruction Risk Factors: Reports: None Related Surgical History: Reports: Appendectomy Abdominal Findings: Present: Other (mild tenderness to palpation ) Kussmaul Respirations Present: No Differential Diagnoses: Viral Gastroenteritis Review of Systems - Review Of Systems Constitutional: Reports: No symptoms Eyes: Reports: No symptoms Ears, Nose, Mouth, Throat: Reports: No symptoms Respiratory: Reports: No symptoms Cardiac: Reports: No symptoms GI: Reports: Abdominal pain, Nausea, Poor appetite, Vomiting : Reports: No symptoms Musculoskeletal: Reports: No symptoms Skin: Reports: No symptoms Neurological: Reports: No symptoms Endocrine: Reports: No symptoms Hematologic/Lymphatic: Reports: No symptoms All Other Systems: Reviewed and Negative Past Medical History - Past Medical History Previously Healthy: Yes Endocrine: Reports: None, Other (Hyperglycemia) Cardiovascular: Reports: None Respiratory: Reports: None Hematological: Reports: None, Sickle Cell (Trait), Other (Sickle Cell Trait) Gastrointestinal: Reports: None, Other (Gastroenteritis) Genitourinary: Reports: None Neuro/Psych: Reports: None Musculoskeletal: Reports: None Cancer: Reports: None - Surgical History General Surgical History: Reports: Appendectomy - Family History Family History: Reports: Unknown - Social History Smoking Status: Current some day smoker Hx Substance Use: Yes Alcohol Screening: Occasionally - Immunizations Tetanus Shot up to Date: No Physical Exam - Physical Exam Appearance: Ill-appearing Pain Distress: Severe Eyes: ZULMA, EOMI, Conjunctiva clear ENT: Ears normal, Nose normal, Oropharynx normal Respiratory: Airway patent, Breath sounds clear, Breath sounds equal, Respirations nonlabored Cardiovascular: RRR, Pulses normal, No rub, No murmur GI/: Soft, No masses, Bowel sounds normal, No Organomegaly, Tender Musculoskeletal: Normal strength, ROM intact, No edema, No calf tenderness Skin: Warm, Dry, Normal color Neurological: Sensation intact, Motor intact, Reflexes intact, Cranial nerves intact, Alert, Oriented Psychiatric: Anxious Critical Care Note - Critical Care Note Total Time (mins): 0 Course - Course Hematology/Chemistry: 12/09/17 18:20 12/09/17 18:20 Orders, Labs, Meds: Lab Review 12/09/17 12/09/17 18:20 18:20 WBC 12.28 H RBC 5.29 Hgb 15.0 Hct 44.2 MCV 83.6 MCH 28.4 MCHC 33.9 RDW Coeff of Ranulfo 12.1 Plt Count 280 Immature Gran % (Auto) 0.3 Neut % (Auto) 89.0 Lymph % (Auto) 5.9 L [place] % (Auto) 4.6 Eos % (Auto) 0.0 Baso % (Auto) 0.2 Immature Gran # (Auto) 0.0 Neut # (Auto) 10.9 H Lymph # (Auto) 0.7 [place] # (Auto) 0.6 Eos # (Auto) 0.0 Baso # (Auto) 0.0 Sodium 136.9 L Potassium 4.09 Chloride 99.3 Carbon Dioxide 29.0 Anion Gap 12.69 BUN 10.9 Creatinine 0.82 Estimated GFR (MDRD) 140.00 BUN/Creatinine Ratio 13.29 Glucose 135.4 H Calcium 10.00 Total Bilirubin 1.29 AST 28.2 ALT 20.0 Alkaline Phosphatase 71.2 Total Protein 8.66 H Albumin 5.08 H Globulin 3.58 Albumin/Globulin Ratio 1.41 Amylase 97.4 Lipase 19.7 L Orders Category Date Time Status ED IV/MEDIPORT/POWERPORT .ONCE EMERGENCY 12/09/17 18:20 Active AMYLASE Stat LAB 12/09/17 18:20 Completed CBC W/ AUTO DIFF Stat LAB 12/09/17 18:20 Completed COMPREHENSIVE METABOLIC PANEL Stat LAB 12/09/17 18:20 Completed LIPASE Stat LAB 12/09/17 18:20 Completed URINALYSIS C & S IF INDICATED Stat LAB 12/09/17 18:20 Uncollected 0.9 % Sodium Chloride [Saline Flush] MEDS 12/09/17 18:20 Ordered 1 syr IVF PRN PRN Dicyclomine Inj [Bentyl] MEDS 12/09/17 18:23 Discontinued 20 mg IM ONCE STA Ondansetron HCl/Pf [Zofran 4 mg/2 ml] MEDS 12/09/17 18:20 Discontinued 4 mg IVP ONCE STA Pantoprazole Sodium [Protonix IV] MEDS 12/09/17 18:20 Discontinued 40 mg IVP ONCE STA Sodium Chloride 0.9% [Sodium Chloride] 1,000 ml MEDS 12/09/17 18:20 Discontinued IV BOLUS Medications Generic Name Dose Route Start Last Admin Trade Name Freq PRN Reason Stop Dose Admin Sodium Chloride 1 syr 12/09/17 18:20 Saline Flush IVF PRN PRN To flush IV Discontinued Medications Generic Name Dose Route Start Last Admin Trade Name Freq PRN Reason Stop Dose Admin Dicyclomine HCl 20 mg 12/09/17 18:23 12/09/17 18:39 Bentyl IM 12/09/17 18:24 20 mg ONCE STA Administration Sodium Chloride 1,000 mls @ 1,000 mls/hr 12/09/17 18:20 12/09/17 18:30 Sodium Chloride IV 12/09/17 19:19 1,000 mls/hr BOLUS STA Administration Ondansetron HCl 4 mg 12/09/17 18:20 12/09/17 18:33 Zofran 4 Mg/2 Ml IVP 12/09/17 18:21 4 mg ONCE STA Administration Pantoprazole Sodium 40 mg 12/09/17 18:20 12/09/17 18:33 Protonix Iv IVP 12/09/17 18:21 40 mg ONCE STA Administration Vital Signs: Temp Pulse Resp BP Pulse Ox 12/09/17 18:03 98.7 F 78 20 0/0 L 98 Departure - Departure Time of Disposition: 19:55 Disposition: HOME SELF-CARE Discharge Problem: Viral gastroenteritis Instructions: Gastroenteritis (ED) Condition: Fair Pt referred to PMD for follow-up: Yes IPMP verified?: No Additional Instructions: Push fluids take Medications for Nausea and diarrhea Follow up with PCP in 3 days . Prescriptions: Diphenoxylate HCl/Atropine [Lomotil] 10 ml PO TID PRN #15 disp.syrin PRN Reason: Diarrhea Ondansetron HCl [Zofran Tab] 4 mg PO Q8H PRN #14 tablet PRN Reason: Nausea / Vomiting Allergies/Adverse Reactions: Allergies No Known Allergies Allergy (Verified 10/27/17 11:50) Home Medications: Ambulatory Orders 1 [No Reported Medications] 0 mg PO DAILY 08/24/12 Diphenoxylate HCl/Atropine [Lomotil] 10 ml PO TID PRN #15 disp.syrin 12/09/17 Ondansetron HCl [Zofran Tab] 4 mg PO Q8H PRN #14 tablet 12/09/17 Disposition Discussed With: Patient, Family
== END 2017-12-09 20:06 | disposition home or self-care (01) ==
LOC: ED 17:56
DX: A08.4 Viral intestinal infection, unspecified (principal); F17.210 Nicotine dependence, cigarettes, uncomplicated
CPT/HCPCS: 36415; 80053; 81001; 82150; 83690; 85025; 87086; 96361; 96372; 96374; 96375; 99283

== ENCOUNTER 2018-02-22 13:25 | Emergency (ER) ==
[2018-02-22 13:25] VITALS: BMI 18.8
[2018-02-22 13:27] VITALS: BP 142/73; TEMP 97.8
--- NOTE | 2018-02-22 13:39 | ED.PDOC ---
General ED Provider: Dr. EMILIANO AVALOS Chief Complaint: Abdominal Pain Stated Complaint: Upper and middle abdominal pain with nausea and vomiting- recurrent. Time Seen by Physician: 13:32 Mode of Arrival: Walk-In Information Source: Patient, Family Exam Limitations: No limitations Primary Care Provider: SAFIA OSEI Nursing and Triage Documentation Reviewed and Agree: Yes Does patient meet sepsis criteria?: No System Inflammatory Response Syndrome: Not Applicable Sepsis Protocol: For patient's 13 years and over: Temp is 96.8 and below OR 101 and greater Pulse >90 BPM Resp >20/minute Acutely Altered Mental Status Are patient's symptoms suggestive of a new infection, such as: -Pneumonia -Skin, Soft Tissue -Endocarditis -UTI -Bone, Joint Infection -Implantable Device -Acute Abdominal Infection -Wound Infection -Meningitis -Blood Stream Catheter Infection -Unknown GI Complaint Exam - Abdominal Pain Complaint/Exam Onset: Sudden Duration: 24 hrs Symptoms Are: Still present Timing: Constant Initial Severity: Mild Current Severity: Moderate Location of Pain: LUQ, Epigastric Radiates To: Reports: Back Character: Reports: Sharp, Aching, Cramping, Colicky Aggravating: Reports: None Alleviating: Reports: None (in the past antispasmodics and iv fluids) Associated Signs and Symptoms: Reports: Vomiting. Denies: Diaphoresis, Fever, Cough, Chest pain, Dizziness, Back pain, Constipation, Blood in stool, Dysuria, Urinary frequency, Decreased urine output, Decreased appetite, Discharge, Nausea , Diarrhea, Decreased activity Related History: Reports: Similar episode AAA Risk Factors: Reports: None Cardiac Risk Factors: Reports: None Testicular Torsion Risk Factors: Reports: None Surgical Obstruction Risk Factors: Reports: None Related Surgical History: Reports: None Abdominal Findings: Present: None Differential Diagnoses: Irritable Bowel Syndrome, Other (sickle cell anemia) Review of Systems - Review Of Systems Constitutional: Reports: No symptoms Eyes: Reports: No symptoms Ears, Nose, Mouth, Throat: Reports: No symptoms Respiratory: Reports: No symptoms Cardiac: Reports: No symptoms GI: Reports: No symptoms, Abdominal pain, Nausea, Poor fluid intake, Vomiting : Reports: No symptoms Musculoskeletal: Reports: No symptoms Skin: Reports: No symptoms Neurological: Reports: No symptoms Endocrine: Reports: No symptoms Hematologic/Lymphatic: Reports: No symptoms All Other Systems: Reviewed and Negative Past Medical History - Past Medical History Previously Healthy: Yes Endocrine: Reports: None, Other (Hyperglycemia) Cardiovascular: Reports: None Respiratory: Reports: None Hematological: Reports: None, Sickle Cell (Trait), Other (Sickle Cell Trait) Gastrointestinal: Reports: None, Other (Gastroenteritis) Genitourinary: Reports: None Neuro/Psych: Reports: None Musculoskeletal: Reports: None Cancer: Reports: None - Surgical History General Surgical History: Reports: Appendectomy - Family History Family History: Reports: Unknown - Social History Smoking Status: Current some day smoker Hx Substance Use: Yes Alcohol Screening: Occasionally - Immunizations Tetanus Shot up to Date: No Physical Exam - Physical Exam Appearance: Ill-appearing, Thin Ill-appearing: Moderate Pain Distress: Severe Eyes: ZULMA, EOMI, Conjunctiva clear ENT: Ears normal, Nose normal, Oropharynx normal Neck: Supple Respiratory: Airway patent, Breath sounds clear, Breath sounds equal, Respirations nonlabored Cardiovascular: RRR, Pulses normal, No rub, No murmur GI/: Soft, Tender (LUQ) Musculoskeletal: Normal strength, ROM intact, No edema, No calf tenderness Skin: Warm, Dry, Normal color Neurological: Sensation intact, Motor intact, Reflexes intact, Cranial nerves intact, Alert, Oriented Psychiatric: Affect appropriate, Mood appropriate Interpretation - Radiology Interpretation Radiology Interpretation By: Radiologist Radiology Results: Negative Exam Interpreted: CT Scan (no acute findings of abdomial scan) Critical Care Note - Critical Care Note Total Time (mins): 60 Course - Course Hematology/Chemistry: 02/22/18 14:06 02/22/18 14:06 Orders, Labs, Meds: Lab Review 02/22/18 02/22/18 02/22/18 14:06 14:06 14:06 WBC 17.13 H RBC 5.22 Hgb 15.2 Hct 44.6 MCV 85.4 MCH 29.1 MCHC 34.1 RDW Coeff of Ranulfo 12.0 Plt Count 249 Immature Gran % (Auto) 0.4 Neut % (Auto) 85.8 Lymph % (Auto) 8.0 L Hayes % (Auto) 5.3 Eos % (Auto) 0.1 Baso % (Auto) 0.4 Immature Gran # (Auto) 0.1 Neut # (Auto) 14.7 H Lymph # (Auto) 1.4 Hayes # (Auto) 0.9 Eos # (Auto) 0.0 Baso # (Auto) 0.1 ESR 14 Sodium 138.2 Potassium 3.88 Chloride 102.3 Carbon Dioxide 29.5 Anion Gap 10.28 BUN 11.4 Creatinine 0.77 Estimated GFR (MDRD) 150.00 BUN/Creatinine Ratio 14.80 Glucose 125.6 H Calcium 9.66 Total Bilirubin 0.71 AST 22.6 ALT 21.0 Alkaline Phosphatase 63.3 Total Protein 8.01 Albumin 4.77 Globulin 3.24 Albumin/Globulin Ratio 1.47 Amylase 112.1 H Lipase 35.4 Plasma/Serum Alcohol 02/22/18 14:06 WBC RBC Hgb Hct MCV MCH MCHC RDW Coeff of Ranulfo Plt Count Immature Gran % (Auto) Neut % (Auto) Lymph % (Auto) Hayes % (Auto) Eos % (Auto) Baso % (Auto) Immature Gran # (Auto) Neut # (Auto) Lymph # (Auto) Hayes # (Auto) Eos # (Auto) Baso # (Auto) ESR Sodium Potassium Chloride Carbon Dioxide Anion Gap BUN Creatinine Estimated GFR (MDRD) BUN/Creatinine Ratio Glucose Calcium Total Bilirubin AST ALT Alkaline Phosphatase Total Protein Albumin Globulin Albumin/Globulin Ratio Amylase Lipase Plasma/Serum Alcohol < 10.0 Orders Category Date Time Status NPO REMINDER: IMAGING ONCE CARE 02/22/18 13:57 Completed IV [ED IV/MEDIPORT/POWERPORT] .ONCE EMERGENCY 02/22/18 13:55 Active ALCOHOL LEVEL [BLOOD ALCOHOL] Stat LAB 02/22/18 14:06 Completed AMYLASE Stat LAB 02/22/18 14:06 Completed CBC W/ AUTO DIFF Stat LAB 02/22/18 14:06 Completed COMPREHENSIVE METABOLIC PANEL Stat LAB 02/22/18 14:06 Completed ESR Stat LAB 02/22/18 14:06 Completed LIPASE Stat LAB 02/22/18 14:06 Completed UA [URINALYSIS C & S IF INDICATED] Stat LAB 02/22/18 13:56 Uncollected URINE DRUG SCREEN (RAPID FOR ED) [DRUG SCREEN, URINE, LAB 02/22/18 14:04 Uncollected RAPID] Stat 0.9 % Sodium Chloride [Saline Flush] MEDS 02/22/18 13:55 Active 1 syr IVF PRN PRN Dicyclomine HCl [Bentyl] MEDS 02/22/18 16:06 Discontinued 10 mg PO ONCE STA Dicyclomine Inj [Bentyl] MEDS 02/22/18 14:14 Discontinued 20 mg IM ONCE STA Famotidine Inj [Pepcid] MEDS 02/22/18 13:59 Discontinued 20 mg IVP ONCE STA Ondansetron HCl/Pf [Zofran 4 mg/2 ml] MEDS 02/22/18 13:59 Discontinued 4 mg IVP ONCE STA Pantoprazole Sodium [Protonix IV] MEDS 02/22/18 15:50 Discontinued 40 mg IVP ONCE STA Promethazine HCl [Phenergan 25 mg/ml Vial] MEDS 02/22/18 15:58 Discontinued 25 mg .ROUTE .STK-MED ONE Promethazine HCl [Phenergan 25 mg/ml Vial] 25 mg MEDS 02/22/18 15:49 Discontinued 0.9 % Sodium Chloride [Sodium Chloride] 50 ml IV ONCE Sodium Chloride 0.9% [Sodium Chloride] 1,000 ml MEDS 02/22/18 13:58 Discontinued IV BOLUS Sodium Chloride 0.9% [Sodium Chloride] 1,000 ml MEDS 02/22/18 15:[address] ABDOMEN/PELVIS W/WO CONTRAS Stat RADS 02/22/18 13:55 Completed Medications Generic Name Dose Route Start Last Admin Trade Name Freq PRN Reason Stop Dose Admin Sodium Chloride 1 syr 02/22/18 13:55 02/22/18 14:25 Saline Flush IVF 1 syr PRN PRN Administration To flush IV Discontinued Medications Generic Name Dose Route Start Last Admin Trade Name Freq PRN Reason Stop Dose Admin Dicyclomine HCl 20 mg 02/22/18 14:14 02/22/18 14:30 Bentyl IM 02/22/18 14:15 Not Given ONCE STA Dicyclomine HCl 10 mg 02/22/18 16:06 02/22/18 16:30 Bentyl PO 02/22/18 16:07 10 mg ONCE STA Administration Famotidine 20 mg 02/22/18 13:59 02/22/18 14:24 Pepcid IVP 02/22/18 14:00 20 mg ONCE STA Administration Sodium Chloride 1,000 mls @ 1,000 mls/hr 02/22/18 13:58 02/22/18 14:25 Sodium Chloride IV 02/22/18 14:57 1,000 mls/hr BOLUS STA Administration Sodium Chloride 1,000 mls @ 1,000 mls/hr 02/22/18 15:48 02/22/18 16:07 Sodium Chloride IV 02/22/18 16:47 1,000 mls/hr BOLUS STA Administration Promethazine HCl 25 mg/ Sodium 51 mls @ 75 mls/hr 02/22/18 15:49 02/22/18 16: 07 Chloride IV 02/22/18 16:29 75 mls/hr ONCE STA Administration Ondansetron HCl 4 mg 02/22/18 13:59 02/22/18 14:24 Zofran 4 Mg/2 Ml IVP 02/22/18 14:00 4 mg ONCE STA Administration Pantoprazole Sodium 40 mg 02/22/18 15:50 02/22/18 16:07 Protonix Iv IVP 02/22/18 15:51 40 mg ONCE STA Administration Vital Signs: Temp Pulse Resp BP Pulse Ox 02/22/18 13:25 97.8 F 66 18 142/73 H 99 Departure - Departure Time of Disposition: 17:50 Disposition: HOME SELF-CARE Discharge Problem: Vomiting, Abdominal cramping, Dehydration, Sickle cell trait, IBS (irritable bowel syndrome) Instructions: Irritable Bowel Syndrome (ED), Dehydration (ED), Acute Nausea and Vomiting (ED), Sickle Cell Disease (DC) Condition: Good Pt referred to PMD for follow-up: Yes IPMP verified?: No Additional Instructions: Remain well hydrated Take meds as directed Follow up with PCP for additional evaluation May return to work in 2 days Prescriptions: Dicyclomine HCl [Bentyl] 1 - 2 cap PO TID #20 capsule Ondansetron [Zofran Odt] 4 mg PO Q8H PRN #7 tab.rapdis PRN Reason: Nausea -vomiting Allergies/Adverse Reactions: Allergies No Known Allergies Allergy (Verified 02/22/18 13:27) Home Medications: Ambulatory Orders 1 [No Reported Medications] 0 mg PO DAILY 08/24/12 Dicyclomine HCl [Bentyl] 1 - 2 cap PO TID #20 capsule 02/22/18 Ondansetron [Zofran Odt] 4 mg PO Q8H PRN #7 tab.rapdis 02/22/18 Disposition Discussed With: Patient, Family Additional Comments Additional Comments: 1530. Was better but now with recurrent pain. Feeling better after IV fluids
[2018-02-22] MEDS ORDERED: SODIUM CHLORIDE 1,000 ML IV STA ×2 (13:58→15:48)
[2018-02-22] MEDS ORDERED: PEPCID IVP STA (13:59)
[2018-02-22] MEDS ORDERED: ZOFRAN 4 MG/2 ML IVP STA (13:59)
[2018-02-22] MEDS ORDERED: BENTYL IM STA (14:14)
--- NOTE | 2018-02-22 15:21 | CT ---
EXAM: CT of the abdomen pelvis with and without contrast History: Left upper quadrant abdominal pain, nausea and vomiting, history of appendectomy. Comparison: CT abdomen pelvis 08/22/2017 Technique: Multiplanar CT images through the abdomen pelvis were obtained with and without the admin istration of IV contrast Findings: Lung bases are clear. No acute osseous abnormalities. No renal stones and no hydronephrosis. No ureteral calculi. A few tiny simple renal cysts again not ed. No perinephric stranding. No focal liver or splenic lesions. Pancreas is unremarkable. Adrena l glands are within normal limits. Appendix is not seen and likely has been surgically removed. No bowel obstruction. No free air and no ascites. Bladder is not well distended. No focal bladder wal l thickening. No discrete gallstones identified by CT. Impression: No acute intra-abdominal or pelvic process
[2018-02-22] MEDS ORDERED: PHENERGAN 25 MG/ML VIAL 25 MG in SODIUM CHLORIDE 50 ML IV STA (15:49)
[2018-02-22] MEDS ORDERED: PROTONIX IV IVP STA (15:50)
[2018-02-22] MEDS ORDERED: PHENERGAN 25 MG/ML VIAL ONE (15:58)
[2018-02-22] MEDS ORDERED: BENTYL PO STA (16:06)
== END 2018-02-22 18:05 | disposition home or self-care (01) ==
LOC: ED 13:25
DX: D57.3 Sickle-cell trait (principal); E86.0 Dehydration; K58.9 Irritable bowel syndrome, unspecified; R11.2 Nausea with vomiting, unspecified; R10.9 Unspecified abdominal pain; F17.210 Nicotine dependence, cigarettes, uncomplicated
CPT/HCPCS: 36415; 80053; 80307; 82150; 83690; 85025; 85651; 96361; 96365; 96375; 99283

== ENCOUNTER 2018-03-27 16:55 | Emergency (ER) ==
[2018-03-27 17:01] VITALS: BP 145/92; TEMP 99.7; BMI 19.4
[2018-03-27] MEDS ORDERED: LIDOCAINE HCL 1% SDV IM STA (18:24)
[2018-03-27] MEDS ORDERED: ROCEPHIN IM STA (18:24)
--- NOTE | 2018-03-27 18:35 | ED.PDOC ---
General ED Provider: Dr. EMILIANO RIVERA-ER Chief Complaint: Penile Problem Stated Complaint: mayte got drainage from my penis Time Seen by Physician: 18:33 Mode of Arrival: Walk-In Information Source: Patient Exam Limitations: No limitations Primary Care Provider: SAFIA OSEI Nursing and Triage Documentation Reviewed and Agree: Yes Does patient meet sepsis criteria?: No System Inflammatory Response Syndrome: Not Applicable Sepsis Protocol: For patient's 13 years and over: Temp is 96.8 and below OR 101 and greater Pulse >90 BPM Resp >20/minute Acutely Altered Mental Status Are patient's symptoms suggestive of a new infection, such as: -Pneumonia -Skin, Soft Tissue -Endocarditis -UTI -Bone, Joint Infection -Implantable Device -Acute Abdominal Infection -Wound Infection -Meningitis -Blood Stream Catheter Infection -Unknown Complaint Exam - STD Male Complaint/Exam Onset/Duration: 2 days Symptoms Are: Still present Timing: Intermittent Initial Severity: Mild Current Severity: Mild Location: Reports: Penis Aggravating: Reports: None Alleviating: Reports: None Associated Signs and Symptoms: Reports: Dysuria Related History: Reports: Prior STD Genitalia Exam: Present: Normal findings Differential Diagnoses: Urethritis Review of Systems - Review Of Systems Constitutional: Reports: No symptoms Eyes: Reports: No symptoms Ears, Nose, Mouth, Throat: Reports: No symptoms Respiratory: Reports: No symptoms Cardiac: Reports: No symptoms GI: Reports: No symptoms : Reports: Burning, Discharge Musculoskeletal: Reports: No symptoms Skin: Reports: No symptoms Neurological: Reports: No symptoms Endocrine: Reports: No symptoms Hematologic/Lymphatic: Reports: No symptoms All Other Systems: Reviewed and Negative Past Medical History - Past Medical History Previously Healthy: Yes Endocrine: Reports: None, Other (Hyperglycemia) Cardiovascular: Reports: None Respiratory: Reports: None Hematological: Reports: None, Sickle Cell (Trait), Other (Sickle Cell Trait) Gastrointestinal: Reports: None, Other (Gastroenteritis) Genitourinary: Reports: None Neuro/Psych: Reports: None Musculoskeletal: Reports: None Cancer: Reports: None - Surgical History General Surgical History: Reports: Appendectomy - Family History Family History: Reports: Unknown - Social History Smoking Status: Current every day smoker, Light tobacco smoker Hx Substance Use: Yes Alcohol Screening: Occasionally Physical Exam - Physical Exam Appearance: Well-appearing, No pain distress, Well-nourished Eyes: ZULMA, EOMI, Conjunctiva clear ENT: Ears normal Neck: Supple Respiratory: Airway patent, Breath sounds clear, Breath sounds equal, Respirations nonlabored Cardiovascular: RRR, Pulses normal, No rub, No murmur GI/: Soft, Nontender, No masses, Bowel sounds normal, No Organomegaly Musculoskeletal: Normal strength, ROM intact, No edema, No calf tenderness Skin: Warm, Dry, Normal color Neurological: Sensation intact, Motor intact, Reflexes intact, Cranial nerves intact, Alert, Oriented Psychiatric: Affect appropriate, Mood appropriate Critical Care Note - Critical Care Note Total Time (mins): 0 Course - Course Orders, Labs, Meds: Orders Category Date Time Status CHLAMYDIA/GC AMPLIFICATION Stat LAB 03/27/18 18:32 Received Ceftriaxone Sodium [Rocephin] MEDS 03/27/18 18:24 Discontinued 250 mg IM ONCE STA Lidocaine HCl/Pf [Lidocaine HCl 1% Sdv] MEDS 03/27/18 18:24 Discontinued 0.9 ml IM ONCE STA Medications Discontinued Medications Generic Name Dose Route Start Last Admin Trade Name Freq PRN Reason Stop Dose Admin Ceftriaxone Sodium 250 mg 03/27/18 18:24 Rocephin IM 03/27/18 18:25 ONCE STA Lidocaine HCl 0.9 ml 03/27/18 18:24 Lidocaine Hcl 1% Sdv IM 03/27/18 18:25 ONCE STA Vital Signs: Temp Pulse Resp BP Pulse Ox 03/27/18 16:55 99.7 F H 69 20 145/92 H 97 Departure - Departure Time of Disposition: 18:35 Disposition: HOME SELF-CARE Discharge Problem: Urethritis Instructions: Nonspecific Urethritis in Men (ED) Condition: Good Pt referred to PMD for follow-up: Yes IPMP verified?: No Additional Instructions: doxycycine 100mg q 12hrs #20---f/u with pcp urethral culture Allergies/Adverse Reactions: Allergies No Known Allergies Allergy (Verified 03/27/18 17:02) Home Medications: Ambulatory Orders 1 [No Reported Medications] 0 mg PO DAILY 08/24/12 Disposition Discussed With: Patient
== END 2018-03-27 19:01 | disposition home or self-care (01) ==
LOC: ED 16:55
DX: N34.2 Other urethritis (principal); F17.210 Nicotine dependence, cigarettes, uncomplicated
CPT/HCPCS: 36415; 87800; 96372; 99283

== ENCOUNTER 2018-05-10 10:02 | Emergency (ER) ==
[2018-05-10 10:19] VITALS: BP 157/92; TEMP 96.8; BMI 18.1
[2018-05-10] MEDS ORDERED: ZOFRAN 4 MG/2 ML IVP STA ×2 (10:21→14:05)
[2018-05-10] MEDS ORDERED: PEPCID IVP STA (10:21)
--- NOTE | 2018-05-10 10:23 | ED.PDOC ---
General ED Provider: Dr. EMILIANO AVALOS Chief Complaint: Abdominal Pain Stated Complaint: Nausea-Vomiting and Severe abdominal Cramping Pain; Chills, and shaking episodes. Muscle cramping. States this is similar to past episodes associated with sickle cell. Time Seen by Physician: 10:00 Mode of Arrival: Walk-In Information Source: Patient Exam Limitations: No limitations Primary Care Provider: SAFIA OSEI Nursing and Triage Documentation Reviewed and Agree: Yes Does patient meet sepsis criteria?: No System Inflammatory Response Syndrome: Not Applicable Sepsis Protocol: For patient's 13 years and over: Temp is 96.8 and below OR 101 and greater Pulse >90 BPM Resp >20/minute Acutely Altered Mental Status Are patient's symptoms suggestive of a new infection, such as: -Pneumonia -Skin, Soft Tissue -Endocarditis -UTI -Bone, Joint Infection -Implantable Device -Acute Abdominal Infection -Wound Infection -Meningitis -Blood Stream Catheter Infection -Unknown GI Complaint Exam - Abdominal Pain Complaint/Exam Onset: Gradual Duration: 12 hrs Symptoms Are: Still present Timing: Intermittent Initial Severity: Moderate Current Severity: Moderate Location of Pain: Diffuse, Epigastric Radiates To: Reports: Chest Character: Reports: Aching, Cramping Aggravating: Reports: Position Alleviating: Reports: None Associated Signs and Symptoms: Reports: Diaphoresis, Dizziness, Nausea, Vomiting Related History: Reports: Similar episode AAA Risk Factors: Reports: None Cardiac Risk Factors: Reports: None Testicular Torsion Risk Factors: Reports: None Surgical Obstruction Risk Factors: Reports: None Related Surgical History: Reports: None Abdominal Findings: Present: Abdominal distention Genitalia Exam: Present: Normal findings Differential Diagnoses: Gastroenteritis, Other (Sickle Cell syndrome) Review of Systems - Review Of Systems Constitutional: Reports: No symptoms Eyes: Reports: No symptoms Ears, Nose, Mouth, Throat: Reports: No symptoms Respiratory: Reports: No symptoms Cardiac: Reports: No symptoms GI: Reports: Abdominal pain, Poor appetite, Vomiting : Reports: No symptoms Musculoskeletal: Reports: Joint pain Skin: Reports: No symptoms Neurological: Reports: No symptoms Endocrine: Reports: No symptoms Hematologic/Lymphatic: Reports: No symptoms All Other Systems: Reviewed and Negative Past Medical History - Past Medical History Previously Healthy: Yes Endocrine: Reports: None, Other (Hyperglycemia) Cardiovascular: Reports: None Respiratory: Reports: None Hematological: Reports: None, Sickle Cell (Trait), Other (Sickle Cell Trait) Gastrointestinal: Reports: None, Other (Gastroenteritis) Genitourinary: Reports: None Neuro/Psych: Reports: None Musculoskeletal: Reports: None Cancer: Reports: None - Surgical History General Surgical History: Reports: Appendectomy - Family History Family History: Reports: Unknown - Social History Smoking Status: Current every day smoker, Light tobacco smoker Hx Substance Use: Yes Alcohol Screening: Occasionally - Immunizations Tetanus Shot up to Date: No Physical Exam - Physical Exam Appearance: Ill-appearing, Thin Ill-appearing: Moderate Pain Distress: Moderate Eyes: ZULMA, EOMI, Conjunctiva clear ENT: Ears normal, Nose normal, Oropharynx normal Neck: Supple Cardiovascular: RRR, Pulses normal, No rub, No murmur GI/: Soft, No masses, No Organomegaly, Tender, Bowel sounds hypoactive Musculoskeletal: Normal strength, ROM intact, No edema, No calf tenderness Skin: Warm, Dry, Normal color Neurological: Sensation intact, Motor intact, Reflexes intact, Cranial nerves intact, Alert, Oriented Psychiatric: Affect appropriate, Mood appropriate Re-Evaluation - Re-Evaluation Time of Re-Evaluation: 14:30 Status: Improved Vital Signs Stable: Yes Appearance: NAD Lungs: Clear Skin: Warm and Dry Neuro: Alert and Oriented X3 CV: RRR Critical Care Note - Critical Care Note Total Time (mins): 60 Course - Course Hematology/Chemistry: 05/10/18 10:40 05/10/18 10:40 Orders, Labs, Meds: Lab Review 05/10/18 05/10/18 05/10/18 10:40 10:40 12:20 WBC 11.13 H RBC 4.97 Hgb 14.3 Hct 42.1 MCV 84.7 MCH 28.8 MCHC 34.0 RDW Coeff of Ranulfo 11.9 Plt Count 214 Immature Gran % (Auto) 0.2 Neut % (Auto) 83.2 Lymph % (Auto) 10.2 [place] % (Auto) 6.1 Eos % (Auto) 0.1 Baso % (Auto) 0.2 Immature Gran # (Auto) 0.0 Neut # (Auto) 9.3 H Lymph # (Auto) 1.1 [place] # (Auto) 0.7 Eos # (Auto) 0.0 Baso # (Auto) 0.0 Sodium 139.9 Potassium 3.53 Chloride 104.5 Carbon Dioxide 27.3 Anion Gap 11.63 BUN 10.7 Creatinine 0.78 Estimated GFR (MDRD) 148.00 BUN/Creatinine Ratio 13.71 Glucose 120.8 H Calcium 9.08 Total Bilirubin 0.94 AST 23.8 ALT 16.1 Alkaline Phosphatase 55.5 Total Protein 7.47 Albumin 4.44 Globulin 3.03 Albumin/Globulin Ratio 1.46 Urine Opiates Screen Positive Ur Oxycodone Screen Negative Urine Methadone Screen Negative Ur Propoxyphene Screen Negative Ur Barbiturates Screen Negative U Tricyclic Antidepress Negative Ur Phencyclidine Scrn Negative Ur Amphetamine Screen Negative U Methamphetamines Scrn Negative U Benzodiazepines Scrn Negative Urine Cocaine Screen Negative U Cannabinoids Screen Positive Orders Category Date Time Status EKG-(ED ONLY) Stat CARDIO 05/10/18 10:19 Completed IV [ED IV/MEDIPORT/POWERPORT] .ONCE EMERGENCY 05/10/18 10:19 Active CBC W/ AUTO DIFF Stat LAB 05/10/18 10:40 Completed CMP [COMPREHENSIVE METABOLIC PANEL] Stat LAB 05/10/18 10:40 Completed URINE DRUG SCREEN (RAPID FOR ED) [DRUG SCREEN, URINE, LAB 05/10/18 12:20 Completed RAPID] Stat 0.9 % Sodium Chloride [Saline Flush] MEDS 05/10/18 10:19 Active 1 syr IVF PRN PRN Famotidine Inj [Pepcid] MEDS 05/10/18 10:21 Discontinued 20 mg IVP ONCE STA Morphine Sulfate [Morphine 4 mg/ml Syringe] MEDS 05/10/18 11:03 Discontinued 4 mg IVP ONCE STA Ondansetron HCl/Pf [Zofran 4 mg/2 ml] MEDS 05/10/18 10:21 Discontinued 4 mg IVP ONCE STA Ondansetron HCl/Pf [Zofran 4 mg/2 ml] MEDS 05/10/18 14:05 Discontinued 4 mg IVP ONCE STA Potassium Chloride in 0.9%NaCl [Sodium Chloride 0.9%- MEDS 05/10/18 11:30 Active KCl 20 Meq] 1,000 ml Folic Acid 1 mg Vitamin B-1 Inj [Thiamine] 100 mg Mvi, Adult No.1 with Vit K [Infuvite Adult] 10 ml IV 125 mls/hr Sodium Chloride 0.9% [Sodium Chloride] 1,000 ml MEDS 05/10/18 10:21 Discontinued IV BOLUS Medications Generic Name Dose Route Start Last Admin Trade Name Freq PRN Reason Stop Dose Admin Folic Acid 1 mg/ Thiamine HCl 1,011.2 mls @ 125 mls/hr 05/10/18 11:30 12:16 100 mg/ Multivitamins/Minerals IV 125 mls/hr 10 ml/ Potassium Chloride/ .[id number] LORNA Administration Sodium Chloride Sodium Chloride 1 syr 05/10/18 10:19 Saline Flush IVF PRN PRN To flush IV Discontinued Medications Generic Name Dose Route Start Last Admin Trade Name Freq PRN Reason Stop Dose Admin Famotidine 20 mg 05/10/18 10:21 05/10/18 10:33 Pepcid IVP 05/10/18 10:22 20 mg ONCE STA Administration Sodium Chloride 1,000 mls @ 1,000 mls/hr 05/10/18 10:21 05/10/18 11:18 Sodium Chloride IV 05/10/18 11:20 1,000 mls/hr BOLUS STA Administration Morphine Sulfate 4 mg 05/10/18 11:03 05/10/18 11:15 Morphine 4 Mg/Ml Syringe IVP 05/10/18 11:04 4 mg ONCE STA Administration Ondansetron HCl 4 mg 05/10/18 10:21 05/10/18 10:33 Zofran 4 Mg/2 Ml IVP 05/10/18 10:22 4 mg ONCE STA Administration Ondansetron HCl 4 mg 05/10/18 14:05 05/10/18 14:10 Zofran 4 Mg/2 Ml IVP 05/10/18 14:06 4 mg ONCE STA Administration Vital Signs: Temp Pulse Resp BP Pulse Ox 05/10/18 10:04 96.8 F L 76 18 157/92 H 99 Departure - Departure Time of Disposition: 14:50 Disposition: HOME SELF-CARE Discharge Problem: Sickle cell trait syndrome, Vomiting, Abdominal pain Instructions: Sickle Cell Crisis (ED), Acute Nausea and Vomiting (ED), Abdominal Pain (ED) Condition: Good Pt referred to PMD for follow-up: Yes IPMP verified?: No Additional Instructions: Stay well hydrated Zofran for Nausea See PCP next week Off work until next Monday Allergies/Adverse Reactions: Allergies No Known Allergies Allergy (Verified 05/10/18 10:38) Home Medications: Ambulatory Orders 1 [No Reported Medications] 0 mg PO DAILY 08/24/12 Disposition Discussed With: Patient
[2018-05-10] MEDS: SODIUM CHLORIDE 1,000 ML IV STA ×2 (10:33→11:18)
[2018-05-10] MEDS ORDERED: MORPHINE 4 MG/ML SYRINGE IVP STA (11:03)
[2018-05-10] MEDS ORDERED: FOLIC ACID 1 MG, THIAMINE 100 MG, INFUVITE ADULT 10 ML in SODIUM CHLORIDE 0.9%-KCL 20 M... IV SCH (11:30)
== END 2018-05-10 15:30 | disposition home or self-care (01) ==
LOC: ED 10:02
DX: E87.1 Hypo-osmolality and hyponatremia (principal); R11.2 Nausea with vomiting, unspecified; R10.9 Unspecified abdominal pain; R25.2 Cramp and spasm; F17.210 Nicotine dependence, cigarettes, uncomplicated
CPT/HCPCS: 36415; 80053; 80306; 85025; 93005; 93010; 96361; 96365; 96375; 99283

== ENCOUNTER 2018-11-01 15:36 | Outpatient (CLI) ==
[2012-08-24 09:18] VITALS: TEMP 97.4
== END 2018-11-01 15:37 | disposition home or self-care (01) ==
LOC: LAB 15:36
PROVIDERS: ATTEND Family Medicine
DX: D57.3 Sickle-cell trait (principal); Z20.2 Contact with and (suspected) exposure to infections with a predominantly sexual mode of transmission
CPT/HCPCS: 36415